=== PATIENT | female | born 1985 | race Caucasian/White ===

== ENCOUNTER 2019-01-26 14:27 | Emergency (ER) | payer OTHER ==
[2019-01-26 14:27] VITALS: BMI 40.9
[2019-01-26 14:33] VITALS: RESP 18; TEMP 97.7
--- NOTE | 2019-01-26 16:13 | ED PDOC ---
HPI: Hypertension/Hypotension Time Seen by Provider: 01/26/19 15:30 Chief Complaint (Nursing): Dizziness/Lightheaded Chief Complaint (Provider): Hypertension History Per: Patient History/Exam Limitations: no limitations Onset/Duration Of Symptoms: Days (3x) Current Symptoms Are (Timing): Still Present Associated Symptoms: Dizziness, Headache (migraine), Other (bilateral shoulder and neck pain) Severity: Moderate Additional Complaint(s): 33 year old female with a past medical history of hypertension and migraines pr esents to the ED for an evaluation of elevated blood pressure ongoing for the past 3x days. Patient states that for the past 3x days she has had elevated blood pressure readings of 176/111, 156/110, and just prior to arrival it was 148/89. Patient was told to double her doses of labetalol from 200 mg TID to 400 mg TID by her PMD over the past 3x days, and has had no improvement. Patient reports having an associated migraine (over her whole head) and constant dizziness for the past 3x days. Patient also reports having increased blurry vision (unsure if it is due to the migraine or if she needs a new prescription for glasses), bilateral shoulder pain, and bilateral neck pain. Patient states that 3x months ago, her PMD took her off of benicar because her blood pressure was too low. Otherwise, patient denies having chest pain, shortness of breath, numbness, tingling, weakness, and abdominal pain. PMD: Nagi Rodriguez MD Past Medical History Reviewed: Historical Data, Nursing Documentation, Vital Signs Vital Signs: Last Vital Signs Temp 97.7 F 01/26/19 14:31 Pulse 96 H 01/26/19 14:31 Resp 18 01/26/19 14:31 BP 147/98 H 01/26/19 14:31 Pulse Ox 97 01/26/19 14:31 KAREL Report Viewed: Yes - Medical History PMH: Asthma, Gastritis, HTN, Migraine Denies: Diabetes, Hypercholesterolemia, Chronic Kidney Disease Other PMH: adenoma - Surgical History Surgical History: - Family History Family History: States: No Known Family Hx - Social History Current smoker - smoking cessation education provided: Yes (light smoker) Alcohol: None Drugs: Denies - Immunization History Hx Tetanus Toxoid Vaccination: No Hx Influenza Vaccination: Yes Hx Pneumococcal Vaccination: No - Allergies Allergies/Adverse Reactions: Allergies Allergy/AdvReac Type Severity Reaction Status Date / Time apple Allergy ITCHING Verified 01/26/19 14:29 Review of Systems Eyes: Positive for: Vision Change (blurred) Cardiovascular: Negative for: Chest Pain Respiratory: Negative for: Shortness of Breath Gastrointestinal: Negative for: Abdominal Pain Musculoskeletal: Positive for: Neck Pain (bilateral), Shoulder Pain (bilateral) Neurological: Positive for: Headache (migraine, all over head), Dizziness (room spinning). Negative for: Weakness, Numbness ((-) tingling) Physical Exam - Reviewed Nursing Documentation Reviewed: Yes Vital Signs Reviewed: Yes - Physical Exam Appears: Positive for: Well, Non-toxic, No Acute Distress Head Exam: Positive for: ATRAUMATIC, NORMOCEPHALIC Skin: Positive for: Normal Color, Warm, Dry Eye Exam: Positive for: Normal appearance, EOMI, PERRL ENT: Positive for: Normal ENT Inspection. Negative for: Nasal Congestion Cardiovascular/Chest: Positive for: Regular Rate, Rhythm Respiratory: Positive for: Normal Breath Sounds Gastrointestinal/Abdominal: Positive for: Soft. Negative for: Tenderness Back: Positive for: Normal Inspection. Negative for: L CVA Tenderness, R CVA Tenderness Extremity: Positive for: Normal ROM. Negative for: Tenderness, Pedal Edema Neurological/Psych: Positive for: Awake, Alert, Oriented (3x), Cerebellar Tests (normal), die inspector II-XII (intact) - Laboratory Results Result Diagrams: 01/26/19 17:10 01/26/19 17:10 Lab Results: no acute - ECG ECG: Positive for: Interpreted By Me, Viewed By Me ECG Rhythm: Positive for: Normal QRS, Normal ST Segment, Sinus Rhythm O2 Sat by Pulse Oximetry: 97 (RA) Pulse Ox Interpretation: Normal - CT Scan/US ct Other Rad Studies (CT/US): Read By Radiologist Other Rad Interpretation: no acute ` Other Rad Studies (CT/US): Interpreted By Me - Progress ED Course And Treament: 1825: Stable. AAOx3. Pain free. Tolerated PO. FU with pcp. BP improved and no dizziness. Ambulated with no issues. Medical Decision Making Medical Decision Makin:30 Initial impression: 33 year old female with an elevated blood pressure, migraine, and dizziness. Initial plan: * CT head w/o contrast * EKG * CMP * troponin I * CBC w/ differential * reglan 10 mg IV once * reevaluation -- Scribe Attestation: Documented byLina Srinivasan, acting as a scribe for Sebastian Saenz MD. Provider Scribe Attestation: All medical record entries made by the Scribe were at my direction and personally dictated by me. I have reviewed the chart and agree that the record accurately reflects my personal performance of the history, physical exam, medical decision making, and the department course for this patient. I have also personally directed, reviewed, and agree with the discharge instructions and disposition. Disposition - Clinical Impression Clinical Impression: Dizziness, Headache, HTN (hypertension) - Patient ED Disposition Is Patient to be Admitted: No Counseled Patient/Family Regarding: Studies Performed, Diagnosis, Need For Followup - Disposition Referrals: [facility] [place] [Outside] - 01/28/19 Disposition: Routine/Home Disposition Time: 18:26 Condition: STABLE Additional Instructions: Return if not better in 3 days. Instructions: High Blood Pressure (DC), Headache, Adult, Dizziness, Nonvertigo, (DC) Forms: [email or web address] ([place]), [facility] School/Work Excuse
--- NOTE | 2019-01-26 16:49 | CT ---
Date of service: 01/26/2019 PROCEDURE: CT HEAD WITHOUT CONTRAST. HISTORY: headache COMPARISON: Noncontrast head CT 10/22/2008 TECHNIQUE: Axial computed tomography images were obtained through the head/brain without intravenous contrast. Radiation dose: Total exam DLP = 797.2 mGy-cm. This CT exam was performed using one or more of the following dose reduction techniques: Automated exposure control, adjustment of the mA and/or kV according to patient size, and/or use of iterative reconstruction technique. FINDINGS: HEMORRHAGE: No intracranial hemorrhage. BRAIN: Normal zuleta-white matter differentiation and density are appreciated throughout the cerebrum and cerebellum with the brainstem appearing unremarkable as well. There is no mass effect. There is no suspicious extra-axial fluid collection and the midline brain anatomy appears diffusely unremarkable. VENTRICLES: Unremarkable. No hydrocephalus. CALVARIUM: Unremarkable. PARANASAL SINUSES: Unremarkable as visualized. No significant inflammatory changes. MASTOID AIR CELLS: Unremarkable as visualized. No inflammatory changes. OTHER FINDINGS: None. IMPRESSION: Stable, unremarkable, unenhanced head CT.
[2019-01-26 17:17] LABS: BASO # 0.1 K/uL (0.0-0.2); BASO % 1.1 % (0.0-2.0); EOS # 0.5 K/uL (0.0-0.7); HEMOGLOBIN 13.7 g/dL (12.0-16.0); LYMPH # 2.8 K/uL (1.0-4.3); LYMPH % 27.3 % (20.0-40.0); MEAN CELL VOLUME 87.2 fl (81.0-99.0); MEAN CORPUSCULAR HEMOGLOBIN 29.9 pg (27.0-31.0); MEAN CORPUSCULAR HGB CONC 34.3 g/dL (33.0-37.0); MEAN PLATELET VOLUME 8.7 fl (7.2-11.7); MONO # 0.6 K/uL (0.0-0.8); MONO % 5.8 % (0.0-10.0); NEUT # 6.3 K/uL (1.8-7.0); NEUT % 60.8 % (50.0-75.0); RBC 4.6 Mil/uL (3.80-5.20); RED CELL DISTRIBUTION WIDTH 13.1 % (11.5-14.5); WHITE BLOOD COUNT 10.3 K/uL (4.8-10.8)
[2019-01-26 17:28] LABS: ALB/GLOB RATIO 1.3 (1.0-2.1); ALBUMIN 4.3 g/dL (3.5-5.0); ALT/SGPT 28 U/L (9-52); AST/SGOT 24 U/L (14-36); BLOOD UREA NITROGEN 15 mg/dl (7-17); CALCIUM 9.2 mg/dL (8.4-10.2); GFR NON-AFRICAN AMERICAN > 60
[2019-01-26 19:03] VITALS: BP 140/83; PULSE 88; O2SAT 98
--- NOTE | 2019-01-27 10:23 | CARD ---
APPROVED REPORT Date of service: 01/26/2019 EKG Measurement Heart [id number] <Conclusion> Normal sinus rhythm Normal ECG
== END 2019-01-26 19:00 | disposition home or self-care (01) ==
LOC: H.ER 14:27
DX: R42 Dizziness and giddiness (principal); R51 Headache; I10 Essential (primary) hypertension
CPT/HCPCS: 70450; 80053; 81025; 84484; 85025; 93005; 96374; 99284; J2765